=== PATIENT | female | born 1995 | race Caucasian/White ===

== ENCOUNTER 2021-08-20 08:57 | Emergency (ER) | payer OTHER ==
[2021-08-20 10:39] LABS: INFLUENZA A NAA NEGATIVE (NEGATIVE)
[2021-08-20 10:42] LABS: CORONAVIRUS 2019 SARS-COV-2 POSITIVE (NEGATIVE)
== END 2021-08-20 11:28 | disposition home or self-care (01) ==
LOC: FER 08:57
PROVIDERS: Emergency Medicine
DX: O98.512 Other viral diseases complicating pregnancy, second trimester (principal); U07.1 COVID-19; Z3A.24 24 weeks gestation of pregnancy
CPT/HCPCS: 99283; U0002